=== PATIENT | female | born 1955 | race African-American/Black ===

== ENCOUNTER 2017-01-20 10:43 | Emergency (ER) | payer OTHER ==
[~2017-01-20] VITALS: Ht 157.5 cm; Wt 65.0 kg
[~2017-01-20 10:43] MED LIST: ALEVE220 M1 PO; AMLODIPINE10 MG PO; ANASTROZOLE1 MG PO; B12; CIPRO500 MG OR; CIPRO500 MG PO; CIPROFLOXACN500 MG PO; FLAGYL500 MG PO; GABAPENTIN100 MG PO; KEFLEX500 M1 PO; LISINOPRIL20 MG PO; LORTAB 10-325 M1 TAB PO; LORTAB 5/3255 MG PO; METFORMIN500 MG PO; MGO400 MG OR; NAPROSYN500 MG OR; NEURONTIN100 MG PO; NO HOME MEDS; NORVASC5 MG OR; ONDANSETRON HCL8 MG OR; PRENATAL1 TAB PO; PROAIR HFA IN; PROAIR HFA INH; PROMETHAZINE25 MG PO; VITAMIN B-121000 MCG PO; ZANTAC 150 PO; ZOFRAN ODT8 MG PO
[2017-01-20] MEDS ORDERED: TOBRAMYCIN0.3 % OU (11:08)
[2017-01-20 11:15] VITALS: BP 143/86
== END 2017-01-20 11:15 | disposition home or self-care (01) | DRG 125 ==
LOC: ED 10:43
DX: H10.9 Unspecified conjunctivitis (principal)

== ENCOUNTER 2017-02-24 06:32 | Emergency (ER) | payer OTHER ==
[~2017-02-24] VITALS: Ht 157.5 cm; Wt 62.7 kg
[~2017-02-24 06:32] MED LIST changes: +TOBRAMYCIN0.3 % OU
[2017-02-24] MEDS ORDERED: CORTISPORIN OP7.5 ML OU (07:35)
[2017-02-24] MEDS ORDERED: AMOXICILLIN/PO500 MG PO (07:35)
[2017-02-24] MEDS ORDERED: FLOXIN OTIC0.3 % AS (07:35)
[2017-02-24 07:45] VITALS: BP 148/96
== END 2017-02-24 07:45 | disposition home or self-care (01) | DRG 125 ==
LOC: ED 06:32
DX: H10.9 Unspecified conjunctivitis (principal); H66.92 Otitis media, unspecified, left ear

== ENCOUNTER 2017-03-03 09:04 | Emergency (ER) | payer OTHER ==
[~2017-03-03] VITALS: Ht 152.4 cm; Wt 62.7 kg
[~2017-03-03 09:04] MED LIST changes: +AMOXICILLIN/PO500 MG PO; +CORTISPORIN OP7.5 ML OU; +FLOXIN OTIC0.3 % AS
[2017-03-03 09:44] VITALS: BP 132/94
== END 2017-03-03 09:44 | disposition home or self-care (01) | DRG 125 ==
LOC: ED 09:04
DX: H10.9 Unspecified conjunctivitis (principal)

== ENCOUNTER 2017-03-07 11:21 | Emergency (ER) | payer OTHER ==
[~2017-03-07] VITALS: Ht 152.4 cm; Wt 61.0 kg
[2017-03-07] MEDS ORDERED: EC-NAPROSYN500 MG PO (12:05)
[2017-03-07 12:52] VITALS: BP 124/81
== END 2017-03-07 12:52 | disposition home or self-care (01) | DRG 563 ==
LOC: ED 11:21
DX: S63.633A Sprain of interphalangeal joint of left middle finger, initial encounter (principal); I10 Essential (primary) hypertension; M19.032 Primary osteoarthritis, left wrist; E11.9 Type 2 diabetes mellitus without complications; X50.0XXA Overexertion from strenuous movement or load, initial encounter; Y93.F2 Activity, caregiving, lifting; Y92.009 Unspecified place in unspecified non-institutional (private) residence as the place of occurrence of the external cause; Z85.3 Personal history of malignant neoplasm of breast

== ENCOUNTER 2017-11-13 18:41 | Emergency (ER) | payer OTHER ==
[~2017-11-13] VITALS: Ht 152.4 cm; Wt 62.8 kg
[~2017-11-13 18:41] MED LIST changes: +EC-NAPROSYN500 MG PO
[2017-11-13 20:06] LABS: HEMATOCRIT 40.6 % (37.0-47.0); IMMATURE GRANULOCYTES 0.3 % (0.0-1.0); MEAN CELL VOLUME 97.1 fL CALC (80.0-100.0); MEAN CORPUSCULAR HGB 33.5 pG CALC (26.0-32.0); MEAN CORPUSCULAR HGB CONC 34.5 g/L CALC (32.0-36.0); NEUT# 5.41 thou/uL (2.00-7.15); RED BLOOD COUNT 4.18 mill/uL (4.20-5.60); RED CELL DISTRI WIDTH 13.2 % (11.5-15.5)
[2017-11-13 20:10] LABS: URINE BILIRUBIN - DIPSTICK NEGATIVE (NEGATIVE); URINE BLOOD DIPSTICK NEGATIVE (NEGATIVE); URINE COLOR YELLOW; URINE GLUCOSE - DIPSTICK NEGATIVE (NEGATIVE); URINE KETONE NEGATIVE (NEGATIVE); URINE LEUK ESTERASE NEGATIVE (NEGATIVE); URINE NITRITE - DIPSTICK NEGATIVE (Negative); URINE PROTEIN - DIPSTICK NEGATIVE (NEG-TRACE); URINE UROBILINOGEN - DIPSTICK 0.2 E.U./dL (0.2)
[2017-11-13 20:11] LABS: URINE CLARITY CLEAR
[2017-11-13 20:28] LABS: ALBUMIN 4.2 g/dL (3.2-5.0); ALKALINE PHOSPHATASE 136 u/l (38-126); ANION GAP 15 (6-22 (CALC)); BILIRUBIN, TOTAL 0.2 mg/dL (0.0-1.4); BUN 19 mg/dL (8-23); BUN/CREATININE RATIO 25 (12-20 (CALC)); CARBON DIOXIDE 26 mmol/l (22-30); CHLORIDE 103 mmol/l (95-108); CREATININE 0.8 mg/dL (0.5-1.0); GFR > 60 ML/MIN (>=60 (CALC)); GFR FOR AFR.AMER. > 60 ML/MIN (>=60 (CALC)); POTASSIUM 3.9 mmol/l (3.5-5.1); SGOT/AST 33 u/l (9-36); SGPT/ALT 30 u/l (11-66); SODIUM 139 mmol/l (137-146); TOTAL PROTEIN 7.5 g/dL (6.3-8.2)
[2017-11-13 21:03] LABS: INFLUENZA A NONE DETECTED (NONE DETECT); INFLUENZA B NONE DETECTED (NONE DETECT)
[2017-11-13] MEDS ORDERED: ZITHROMAX250 MG PO (22:40)
[2017-11-13] MEDS ORDERED: TAM75CAP PO (22:40)
[2017-11-13 23:30] VITALS: BP 129/72
== END 2017-11-13 23:42 | disposition home or self-care (01) | DRG 864 ==
LOC: ED 18:41
PROVIDERS: Emergency Medicine
DX: R50.9 Fever, unspecified (principal); B34.9 Viral infection, unspecified; J40 Bronchitis, not specified as acute or chronic; R11.2 Nausea with vomiting, unspecified; R07.9 Chest pain, unspecified

== ENCOUNTER 2017-11-27 10:22 | Emergency (ER) | payer OTHER ==
[~2017-11-27] VITALS: Ht 152.4 cm; Wt 70.0 kg
[~2017-11-27 10:22] MED LIST changes: +TAM75CAP PO; +ZITHROMAX250 MG PO
[2017-11-27] MEDS ORDERED: TOBRAMYCIN0.3 % OP (10:38)
[2017-11-27 10:43] VITALS: BP 122/65
== END 2017-11-27 10:54 | disposition home or self-care (01) | DRG 125 ==
LOC: ED 10:22
DX: H10.33 Unspecified acute conjunctivitis, bilateral (principal)

== ENCOUNTER 2018-05-06 16:35 | Observation (INO) | payer OTHER ==
[~2018-05-06] VITALS: Ht 152.4 cm; Wt 59.9 kg
[~2018-05-06 16:35] MED LIST changes: +TOBRAMYCIN0.3 % OP
[2018-05-06] MEDS ORDERED: HUMALOG KW75 MG/25 K SC (16:57)
[2018-05-06] MEDS ORDERED: SINGULAIR10 MG PO (16:58)
[2018-05-06] MEDS ORDERED: ANASTROZOLE1 MG PO (16:58)
[2018-05-06] MEDS ORDERED: WARFARIN1 MG PO (16:59)
[2018-05-06 17:51] LABS: HEMATOCRIT 40.1 % (37.0-47.0); HEMOGLOBIN 13.9 g/dl (12.0-16.0); IMMATURE GRANULOCYTES 0.2 % (0.0-5.0); MEAN CELL VOLUME 95.7 fL CALC (80.0-100.0); MEAN CORPUSCULAR HGB 33.2 pG CALC (26.0-32.0); MEAN CORPUSCULAR HGB CONC 34.7 g/L CALC (32.0-36.0); NEUT# 3.08 thou/uL (2.00-7.15); RED BLOOD COUNT 4.19 mill/uL (4.20-5.60); RED CELL DISTRI WIDTH 13.1 % (11.5-15.5)
[2018-05-06 18:11] LABS: ALBUMIN 4.3 g/dL (3.2-5.0); ALKALINE PHOSPHATASE 103 u/l (38-126); ANION GAP 17 (6-22 (CALC)); BILIRUBIN, TOTAL 0.3 mg/dL (0.0-1.4); BUN 17 mg/dL (8-23); BUN/CREATININE RATIO 28 (12-20 (CALC)); CARBON DIOXIDE 24 mmol/l (22-30); CHLORIDE 102 mmol/l (95-108); CREATININE 0.6 mg/dL (0.5-1.0); GFR > 60 ML/MIN (>=60 (CALC)); GFR FOR AFR.AMER. > 60 ML/MIN (>=60 (CALC)); POTASSIUM 4.2 mmol/l (3.5-5.1); SGOT/AST 22 u/l (9-36); SGPT/ALT 31 u/l (11-66); SODIUM 139 mmol/l (137-146); TOTAL PROTEIN 7.7 g/dL (6.3-8.2)
[2018-05-06] MEDS ORDERED: MEDDOSEPAK PO (18:26)
[2018-05-06] MEDS ORDERED: TESSALON PERLE100 MG PO (18:26)
[2018-05-06] MEDS ORDERED: CEPHALEXIN500 M1 PO (18:26)
[2018-05-06] MEDS ORDERED: AMOXICILLIN500 MG PO (18:27)
[2018-05-06 19:15] LABS: INTERNATIONAL NORMALIZED RATIO 0.9 RATIO (0.7-1.3); PROTHROMBIN TIME 10.3 SECONDS (9.0-12.5)
[2018-05-06 20:00] VITALS: BP 149/89
[2018-05-07 00:22] VITALS: BP 155/97
[2018-05-07 04:28] VITALS: BP 170/102
[2018-05-07 07:45] VITALS: BP 151/82
[2018-05-07 09:12] LABS: CHOLESTEROL HDL RATIO 4.7 (<4.4 (CALC)); MAGNESIUM 1.7 mg/dL (1.6-2.3)
[2018-05-07 12:30] VITALS: BP 150/93
[2018-05-07 13:00] VITALS: BP 141/88
[2018-05-07 17:30] LABS: URINE BILIRUBIN - DIPSTICK NEGATIVE (NEGATIVE); URINE BLOOD DIPSTICK NEGATIVE (NEGATIVE); URINE COLOR YELLOW; URINE GLUCOSE - DIPSTICK >=1000 mg/dL (NEGATIVE); URINE KETONE NEGATIVE (NEGATIVE); URINE LEUK ESTERASE NEGATIVE (NEGATIVE); URINE NITRITE - DIPSTICK NEGATIVE (Negative); URINE PH 6.5 (4.5-8.0); URINE PROTEIN - DIPSTICK NEGATIVE (NEG-TRACE); URINE SPECIFIC GRAVITY <=1.005; URINE UROBILINOGEN - DIPSTICK 0.2 E.U./dL (0.2)
[2018-05-07 17:33] LABS: URINE CLARITY CLEAR
[2018-05-07 19:16] VITALS: BP 141/91
[2018-05-08 00:08] VITALS: BP 146/87
[2018-05-08 04:00] VITALS: BP 167/97
[2018-05-08 05:50] LABS: HEMATOCRIT 38.7 % (37.0-47.0); HEMOGLOBIN 13.2 g/dl (12.0-16.0); IMMATURE GRANULOCYTES 0.2 % (0.0-5.0); MEAN CELL VOLUME 96.3 fL CALC (80.0-100.0); MEAN CORPUSCULAR HGB 32.8 pG CALC (26.0-32.0); MEAN CORPUSCULAR HGB CONC 34.1 g/L CALC (32.0-36.0); NEUT# 3.32 thou/uL (2.00-7.15); RED BLOOD COUNT 4.02 mill/uL (4.20-5.60)
[2018-05-08 06:16] LABS: ANION GAP 14 (6-22 (CALC)); BUN 10 mg/dL (8-23); BUN/CREATININE RATIO 23 (12-20 (CALC)); CARBON DIOXIDE 25 mmol/l (22-30); CHLORIDE 106 mmol/l (95-108); CREATININE 0.5 mg/dL (0.5-1.0); GFR > 60 ML/MIN (>=60 (CALC)); GFR FOR AFR.AMER. > 60 ML/MIN (>=60 (CALC)); MAGNESIUM 1.8 mg/dL (1.6-2.3); POTASSIUM 4.4 mmol/l (3.5-5.1); SODIUM 139 mmol/l (137-146)
[2018-05-08 09:00] VITALS: BP 147/97
[2018-05-08 11:30] VITALS: BP 145/95
[2018-05-08] MEDS ORDERED: PREDNISONE10 MG PO (11:52)
[2018-05-08] MEDS ORDERED: IPRATROPIU0.5 MG/3 M IN (11:52)
[2018-05-08] MEDS ORDERED: ZITHROMAX500 MG PO (11:52)
== END 2018-05-08 14:27 | disposition home or self-care (01) ==
LOC: ED 16:35 → ED-I 18:40 → ED 18:59 → MS2 19:00
PROVIDERS: Emergency Medicine; Nurse Practitioner Family; ADMIT General Practice; ATTEND General Practice
DX: J44.1 Chronic obstructive pulmonary disease with (acute) exacerbation (principal); J44.0 Chronic obstructive pulmonary disease with (acute) lower respiratory infection; J20.9 Acute bronchitis, unspecified; J02.0 Streptococcal pharyngitis; E11.9 Type 2 diabetes mellitus without complications; I10 Essential (primary) hypertension; R06.89 Other abnormalities of breathing; R09.02 Hypoxemia; Z79.01 Long term (current) use of anticoagulants; Z85.3 Personal history of malignant neoplasm of breast; Z86.718 Personal history of other venous thrombosis and embolism; Z87.891 Personal history of nicotine dependence
CPT/HCPCS: G0378; J1650

== ENCOUNTER 2018-10-18 08:19 | Emergency (ER) | payer OTHER ==
[~2018-10-18] VITALS: Ht 152.4 cm; Wt 90.0 kg
[~2018-10-18 08:19] MED LIST changes: +AMOXICILLIN500 MG PO; +CEPHALEXIN500 M1 PO; +HUMALOG KW75 MG/25 K SC; +IPRATROPIU0.5 MG/3 M IN; +MEDDOSEPAK PO; +PREDNISONE10 MG PO; +SINGULAIR10 MG PO; +TESSALON PERLE100 MG PO; +WARFARIN1 MG PO; +ZITHROMAX500 MG PO
[2018-10-18] MEDS ORDERED: BACTRIM DS1 TAB PO (09:13)
[2018-10-18 09:24] VITALS: BP 157/98
== END 2018-10-18 09:30 | disposition home or self-care (01) ==
LOC: ED 08:19
DX: H00.012 Hordeolum externum right lower eyelid (principal); H57.11 Ocular pain, right eye

== ENCOUNTER 2019-09-09 09:58 | Emergency (ER) | payer SELFPAY ==
[~2019-09-09 09:58] MED LIST changes: +BACTRIM DS1 TAB PO
[2019-09-09] MEDS ORDERED: BACTROBAN TOP (11:20)
[2019-09-09] MEDS ORDERED: DEBROX6.5 % AU (11:20)
[2019-09-09] MEDS ORDERED: CORTISPORIN OTI10 ML AD (11:20)
[2019-09-09 11:26] VITALS: BP 142/84
== END 2019-09-09 11:26 | disposition home or self-care (01) | DRG 156 ==
LOC: ED 09:58
DX: H60.92 Unspecified otitis externa, left ear (principal); H00.014 Hordeolum externum left upper eyelid; H61.22 Impacted cerumen, left ear

== ENCOUNTER 2022-03-03 08:58 | Emergency (ER) | payer MEDICARE, MEDICAID ==
[2022-03-03] VITALS (8 sets, daily range): BP systolic 121–138; BP diastolic 79–90
[~2022-03-03] VITALS: Ht 152.4 cm; Wt 62.0 kg
[~2022-03-03 08:58] MED LIST changes: +BACTROBAN TOP; +CORTISPORIN OTI10 ML AD; +DEBROX6.5 % AU
[2022-03-03] MEDS ORDERED: NORVASC2.5 M1 PO (09:35)
[2022-03-03] MEDS ORDERED: HUMALOG100 UNIT (09:36)
[2022-03-03] MEDS ORDERED: CEPHALEXIN500 M1 PO (10:58)
== END 2022-03-03 11:04 | disposition home or self-care (01) ==
LOC: ED 08:58
PROC: 0HCNXZZ Extirpation of Matter from Left Foot Skin, External Approach (ICD-10-PCS; principal; 2022-03-03)
DX: S91.322A Laceration with foreign body, left foot, initial encounter (principal); E11.9 Type 2 diabetes mellitus without complications; I10 Essential (primary) hypertension; W45.8XXA Other foreign body or object entering through skin, initial encounter; Y92.009 Unspecified place in unspecified non-institutional (private) residence as the place of occurrence of the external cause; Z79.4 Long term (current) use of insulin

== ENCOUNTER 2023-01-29 12:02 | Emergency (ER) | payer MEDICARE, MEDICAID ==
[~2023-01-29] VITALS: Ht 152.4 cm; Wt 63.0 kg
[2023-01-29] VITALS (7 sets, daily range): BP systolic 123–144; BP diastolic 73–84
[~2023-01-29 12:02] MED LIST changes: +HUMALOG100 UNIT; +NORVASC2.5 M1 PO
[2023-01-29] MEDS ORDERED: MONTELUKAST SOD10 MG PO (12:11)
[2023-01-29] MEDS ORDERED: TRAMADOL HCL50 MG PO (12:11)
[2023-01-29] MEDS ORDERED: ALBUTEROL108 MCG/AC (12:12)
[2023-01-29] MEDS ORDERED: WAL-FEX180 MG (12:12)
[2023-01-29] MEDS ORDERED: TORADOL PO (13:57)
[2023-01-29] MEDS ORDERED: VOLTAREN1%GEL TOP (14:17)
== END 2023-01-29 14:57 | disposition home or self-care (01) ==
LOC: ED 12:02
DX: M25.531 Pain in right wrist (principal); E11.9 Type 2 diabetes mellitus without complications